=== PATIENT | male | born 1930 | race American Indian/Alaskan Native ===

== ENCOUNTER 2017-04-07 10:19 | Emergency (ER) | payer MEDICARE, BC ==
[~2017-04-07] VITALS: Ht 165.1 cm; Wt 117.9 kg
[~2017-04-07 10:19] MED LIST: ARICEPT10 MG PO; ASPIR-LOW81 MG PO; ATORVASTATIN CA20 MG PO; CEPHALEXIN500 MG PO; CITALOPRAM HBR20 MG PO; DESIPRAMINE HCL25 MG PO; FAMOTIDINE40 MG PO; FERROUS FUMARA324 MG PO; FUROSEMIDE20 MG PO; METOPROLOL TART25 MG PO; MONTELUKAST SOD10 MG PO; NORVASC5 MG PO; OMEPRAZOLE20 MG PO; TRAZODONE HCL50 MG PO; VITAMIN B COMP1 EACH PO; VITAMIN B-121000 MCG PO
[2017-04-07] MEDS ORDERED: DULERA 200 MCG/13 GM INH (11:05)
[2017-04-07] MEDS ORDERED: IPRAT-ALBUT 0.5-3 ML INH (11:06)
[2017-04-07] MEDS ORDERED: PROVENTIL HFA6.7 GM INH (11:07)
[2017-04-07] MEDS ORDERED: ACID CONTROL150 MG PO (11:08)
[2017-04-07] MEDS ORDERED: FERROUS SULFAT325 MG PO (11:09)
[2017-04-07] MEDS ORDERED: SPIRIVA18 MCG INH (11:12)
[2017-04-07] MEDS ORDERED: OXYCODONE HCL10 MG PO (11:13)
[2017-04-07] MEDS ORDERED: SIMETHICONE80 MG PO (11:14)
[2017-04-07] MEDS ORDERED: LOPERAMIDE2 M1 PO (11:15)
[2017-04-07] MEDS ORDERED: CITRATE OF MAG296 ML PO (12:36)
== END 2017-04-07 12:47 | disposition home or self-care (01) ==
LOC: ED 10:19
DX: K59.00 Constipation, unspecified (principal); E78.00 Pure hypercholesterolemia, unspecified; I10 Essential (primary) hypertension; Z79.899 Other long term (current) drug therapy; Z79.52 Long term (current) use of systemic steroids; Z79.51 Long term (current) use of inhaled steroids
CPT/HCPCS: 74020; 80053; 81001; 82150; 83690; 85025; 87088; 99283

== ENCOUNTER 2017-06-04 14:28 | Emergency (ER) | payer MEDICARE, BC ==
[~2017-06-04] VITALS: Ht 165.1 cm; Wt 117.9 kg
[~2017-06-04 14:28] MED LIST changes: +ACID CONTROL150 MG PO; +CITRATE OF MAG296 ML PO; +DULERA 200 MCG/13 GM INH; +FERROUS SULFAT325 MG PO; +IPRAT-ALBUT 0.5-3 ML INH; +LOPERAMIDE2 M1 PO; +OXYCODONE HCL10 MG PO; +PROVENTIL HFA6.7 GM INH; +SIMETHICONE80 MG PO; +SPIRIVA18 MCG INH
[2017-06-04] MEDS ORDERED: ELIQUIS5 MG PO (14:56)
[2017-06-04] MEDS ORDERED: OXYCODONE-ACET1 EAC3 PO (14:57)
== END 2017-06-04 16:09 | disposition home or self-care (01) ==
LOC: ED 14:28
DX: R00.1 Bradycardia, unspecified (principal); I10 Essential (primary) hypertension; E78.00 Pure hypercholesterolemia, unspecified; J44.9 Chronic obstructive pulmonary disease, unspecified; Z87.891 Personal history of nicotine dependence; Z79.899 Other long term (current) drug therapy; Z79.82 Long term (current) use of aspirin
CPT/HCPCS: 99284

== ENCOUNTER 2019-01-05 18:33 | Emergency (ER) | payer MEDICARE, BC ==
[~2019-01-05] VITALS: Ht 165.1 cm; Wt 122.5 kg
[~2019-01-05 18:33] MED LIST changes: +ALBUTEROL2.5 MG/3 M INH; +DELTASONE20 MG PO; +ELIQUIS5 MG PO; +OXYCODONE-ACET1 EAC3 PO
--- OUTSIDE RECORDS SUMMARY | 2019-01-05 18:36 | XMS ---
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 [place] has no Care Guidelines for this patient. Syl VISIT COUNT (12 MO.) 2 YE [facility]ae[facility] TOTAL 2 NOTE: Visits indicate total known visits. 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
[2019-01-05] MEDS ORDERED: TRAZODONE HCL50 MG PO (20:42)
[2019-01-05] MEDS ORDERED: PROTONIX20 MG PO (20:44)
[2019-01-05] MEDS ORDERED: MACROBID 100 M100 MG PO (21:43)
== END 2019-01-05 22:01 | disposition home or self-care (01) ==
LOC: ED 18:33
DX: N39.0 Urinary tract infection, site not specified (principal); R31.9 Hematuria, unspecified; I10 Essential (primary) hypertension; E78.00 Pure hypercholesterolemia, unspecified; J44.9 Chronic obstructive pulmonary disease, unspecified; Z86.711 Personal history of pulmonary embolism; Z87.891 Personal history of nicotine dependence; Z79.899 Other long term (current) drug therapy; Z79.82 Long term (current) use of aspirin
CPT/HCPCS: 81001; 99283

== ENCOUNTER 2019-12-09 10:43 | Emergency (ER) | payer MEDICARE, BC ==
[~2019-12-09] VITALS: Ht 160 cm; Wt 110.7 kg
[~2019-12-09 10:43] MED LIST changes: +MACROBID 100 M100 MG PO; +PROTONIX20 MG PO
--- OUTSIDE RECORDS SUMMARY | 2019-12-09 10:46 | XMS ---
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 Care History Medical/Surgical 01/06/2019 [facility] \T\middot;\T\nbsp; PATIENT IS A [employer] MEMBER. \T\middot;\T\nbsp; PLEASE REFER PATIENT TO [facility] FOR NON EMERGENT MEDICAL NEEDS. \T\middot;\ T\nbsp; [facility] CAN SEE PATIENTS SAME DAY FOR APTS IF PATIENT CALLS FIRST THING IN THE MORNING. E.D. VISIT COUNT (12 MO.) 2 [facility] TOTAL 2 NOTE: Visits indicate total known visits. 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
[2019-12-09] MEDS ORDERED: BUPRENORPHINE HC2 MG SL (12:09)
--- NOTE | 2019-12-09 21:30 | EKG ---
[facility] [address] [place] [address] Signed Marked sinus bradycardia Left axis deviation Abnormal ECG When compared with ECG of 11-JAN-2017 20:19, Vent. rate has decreased BY 22 BPM Confirmed by BABAK ARROYO MD ([id number] on 12/09/2019 9:30:00 PM Electronically Signed By: BABAK ARROYO MD 12/09/192129 PATIENT NAME: SAMANTHAFRANCE Electrocardiogram DATE OF : 30 PHYSICIAN: BABAK ARROYO MD REPORT #: [id number] REPORT IS CONFIDENTIAL AND NOT TO BE RELEASED WITHOUT AUTHORIZATION
== END 2019-12-09 13:57 | disposition home or self-care (01) ==
LOC: ED 10:43
DX: S09.90XA Unspecified injury of head, initial encounter (principal); R41.82 Altered mental status, unspecified; T40.4X5A Adverse effect of other synthetic narcotics, initial encounter; I10 Essential (primary) hypertension; E78.00 Pure hypercholesterolemia, unspecified; J44.9 Chronic obstructive pulmonary disease, unspecified; Z87.891 Personal history of nicotine dependence; Z79.899 Other long term (current) drug therapy; W18.30XA Fall on same level, unspecified, initial encounter
CPT/HCPCS: 51701; 70450; 71045; 80053; 81001; 83880; 84484; 85025; 93005; 93010; 99285-25